=== PATIENT | male | born 1975 | race Hispanic/Latino ===

== ENCOUNTER 2025-02-06 12:56 | Emergency (ER) | payer OTHER | END 2025-02-06 14:44 | disposition home or self-care (01) | LOC: CSHERS 12:56 → EEVIPCON 12:56 → CSHERS 14:44 | DX: S86.912A Strain of unspecified muscle(s) and tendon(s) at lower leg level, left leg, initial encounter (principal); I10 Essential (primary) hypertension; X58.XXXA Exposure to other specified factors, initial encounter; Y93.68 Activity, volleyball (beach) (court) | CPT/HCPCS: 99283 ==